=== PATIENT | male | born 1990 | race Caucasian/White ===

== ENCOUNTER 2016-09-28 12:04 | Emergency (ER) | payer SELFPAY ==
--- NOTE | ~2016-09-28 | CR181 ---
[facility]. [facility] A Service of [facility] & [facility] RADIOLOGY TEXT RESULTS PATIENT: JANEE SALVADOR LOCATION: SED : [birth year] UNIT #: [id number] AGE: [address]: Tacho Soni MD SEX: M ORDER DR: [id number] [place] [id number] E MR#: [id number] Acc #: [id number] NAME: JANEE SALVADOR : 1990 SEX: M STUDY DATE/TIME: 09/28/2016 12:28 UNIT: SED ROOM: STUDY DESCRIPTION: CR Lumbar Spine 2 or 3 Views Attending Physician: Tacho Soni M.D. Ordering Physician: Tacho Soni M.D. MEDICAL IMAGING REPORT This report is preliminary unless electronic signature is present. EXAM 3 views lumbar spine 09/28/2016 HISTORY Truck fell on patient last night. Back pain. COMPARISON Lumbar spine radiographs 05/23/2011. FINDINGS No acute lumbar spine fracture or subluxation is seen. This space height appears preserved. No osteolytic or osteoblastic abnormalities identified. IMPRESSION 1. Normal lumbar spine. Dictated by... Shamika Sher M.D. THIS IS AN ELECTRONICALLY VERIFIED REPORT Shamika Sher M.D. at 09/29/2016 8:31 AM MARCE/master TD: 09/28/2016 19:38 JOB #: [id number] MEDICAL IMAGING REPORT Page 1 of 1
--- NOTE | ~2016-09-28 | CR206 ---
[facility] A Service of [facility] RADIOLOGY TEXT RESULTS PATIENT: JANEE SALVADOR LOCATION: SED : [birth year] UNIT #: [id number] AGE: [address]: Tacho Soni MD SEX: M ORDER DR: [id number] [place] [id number] E MR#: [id number] Acc #: [id number] NAME: JANEE SALVADOR : 1990 SEX: M STUDY DATE/TIME: 09/28/2016 12:28 UNIT: SED ROOM: STUDY DESCRIPTION: CR Pelvis 1 or 2 Views Attending Physician: Tacho Soni M.D. Ordering Physician: Tacho Soni M.D. MEDICAL IMAGING REPORT This report is preliminary unless electronic signature is present. EXAM Pelvis 09/28/2016 HISTORY Truck fell on patient last night. Pain. COMPARISON None. FINDINGS AP and lateral views were obtained of the pelvis. No pelvic fracture, hip fracture or hip dislocation is seen. No sacral fracture, or sacral or coccygeal segment displacement is seen. No SI joint or pubic symphysis diastasis. Imaged portion lower lumbar spine appears normal. IMPRESSION 1. Normal 2 views the pelvis. Dictated by... Shamika Sher M.D. THIS IS AN ELECTRONICALLY VERIFIED REPORT Shamika Sher M.D. at 09/29/2016 8:31 AM LLDean/master TD: 09/28/2016 19:32 JOB #: [id number] MEDICAL IMAGING REPORT Page 1 of 1
--- NOTE | ~2016-09-28 | CR63 ---
[facility] A Service of [facility] RADIOLOGY TEXT RESULTS PATIENT: JANEE SALVADOR LOCATION: SED : [birth year] UNIT #: [id number] AGE: [address]: Tacho Soni MD SEX: M ORDER DR: [id number] [place] [id number] E MR#: [id number] Acc #: [id number] NAME: JANEE SALVADOR : 1990 SEX: M STUDY DATE/TIME: 09/28/2016 12:28 UNIT: SED ROOM: STUDY DESCRIPTION: CR Chest 2 View Attending Physician: Tacho Soni M.D. Ordering Physician: Tacho Soni M.D. Primary Care Physician: No Primary Care Physician MEDICAL IMAGING REPORT This report is preliminary unless electronic signature is present. EXAM Chest, 09/28/2016, [facility]. HISTORY 25-year-old male status post injury. Truck fell on patient last night, head laceration. Pain, headache. COMPARISON Chest, none. FINDINGS PA and lateral chest views show normal cardiac size and configuration. Hilar structures and mediastinal contours are preserved. Bilateral lungs are expanded and clear. Costophrenic angles are preserved. Visualized bony thorax is intact. IMPRESSION Negative chest. Dictated by... Dago Brown M.D. THIS IS AN ELECTRONICALLY VERIFIED REPORT Dago Brown M.D. at 09/29/2016 8:08 AM ANANT/elizabeth TD: 09/28/2016 18:36 JOB #: [id number] MEDICAL IMAGING REPORT [facility] A Service of [facility] RADIOLOGY TEXT RESULTS PATIENT: JANEE SALVADOR LOCATION: SED : [birth year] UNIT #: [id number] AGE: [address]: Tacho Soni MD SEX: M ORDER DR: Page 1 of 1
--- NOTE | ~2016-09-28 | CT71 ---
[facility] A Service of [facility] RADIOLOGY TEXT RESULTS PATIENT: JANEE SALVADOR LOCATION: SED : [birth year] UNIT #: [id number] AGE: [address]: Tacho Soni MD SEX: M ORDER DR: [id number] [place] [id number] E MR#: [id number] Acc #: [id number] NAME: JANEE SALVADOR : 1990 SEX: M STUDY DATE/TIME: 09/28/2016 12:28 UNIT: SED ROOM: STUDY DESCRIPTION: CT Head Wo Contrast Attending Physician: Tacho Soni M.D. Ordering Physician: Tacho Soni M.D. Primary Care Physician: No Primary Care Physician MEDICAL IMAGING REPORT This report is preliminary unless electronic signature is present. EXAM CT head. INDICATION Headache status post fall for 1 day. Laceration above the right eyebrow. TECHNIQUE CT of the head without contrast. This CT exam was performed with one or more of the following radiation dose reduction techniques: automatic exposure control, adjustment of mA and/or kV according to patient size, and iterative reconstruction. COMPARISON CT head, 05/17/2009. FINDINGS There is no acute intracranial hemorrhage, mass lesion, or acute infarct. Santoyo-white matter differentiation is normal. The ventricles and basilar cisterns are normal in size and configuration. No extraaxial collections. No acute osseous abnormalities. There is mild mucosal thickening within the paranasal sinuses. IMPRESSION No acute findings. Dictated by... Willi Leigh M.D. [facility] A Service of [facility] RADIOLOGY TEXT RESULTS PATIENT: JANEE SALVADOR LOCATION: SED : [birth year] UNIT #: [id number] AGE: [address]: Tacho Soni MD SEX: M ORDER DR: THIS IS AN ELECTRONICALLY VERIFIED REPORT Willi Leigh M.D. at 09/29/2016 4:14 PM RPC/elizabeth TD: 09/28/2016 18:21 JOB #: [id number] MEDICAL IMAGING REPORT Page 1 of 1
[~2016-09-28 12:04] MED LIST: BACITRACIN15 GM OINT EXT; CLARINEX-D1 TAB.SR . PO; FLEXERIL10 MG PO; KEFLEX500 M2 PO; NO MEDICATIONS; VICODIN 5/1 TAB 5/50 PO; VICODIN 5/500 T1 TAB PO; VOLTAREN50 MG PO
== END 2016-09-28 14:15 | disposition home or self-care (01) ==
LOC: SED 12:04
DX: S09.90XA Unspecified injury of head, initial encounter (principal); S39.012A Strain of muscle, fascia and tendon of lower back, initial encounter; S20.219A Contusion of unspecified front wall of thorax, initial encounter; F17.200 Nicotine dependence, unspecified, uncomplicated; V98.8XXA Other specified transport accidents, initial encounter
CPT/HCPCS: 70450; 71020; 72100; 72170; 99284